=== PATIENT | female | born 1990 | race African-American/Black ===

== ENCOUNTER 2021-10-26 21:19 | Emergency (ER) | payer SELFPAY ==
[2021-10-26 21:49] VITALS: BP 125/68; PULSE 73; RESP 16; TEMP 36.8; O2SAT 100
--- NOTE | 2021-10-26 23:20 | ED.SKABFB ---
HPI - Skin/Abscess/Foreign Bdy General Chief complaint: Skin/Abscess/Foreign Body Stated complaint: painful rash on neck and abd Time Seen by Provider: 10/26/21 22:56 Source: patient Mode of arrival: ambulatory Limitations: no limitations History of Present Illness HPI narrative: Patient presents to the emergency department for an itchy rash noted today. Denies any new soaps, lotions, detergents, or medications. She has not taken anything or applied any cream to the rash. Denies fever. Related Data Allergies Allergy/AdvReac Type Severity Reaction Status Date / Time No Known Allergies Allergy Verified 10/26/21 21:56 Review of Systems Review of Systems: CONSTITUTIONAL: Denies fever SKIN: Reports rash and itching All systems reviewed & are unremarkable except as noted in HPI and below PMFSH Past Medical History Medical History (Updated 10/26/21 @ 23:28 by Jeannie Diaz PA-C) No active medical problems Social History Social History (Updated 10/26/21 @ 23:28 by Jeannie Diaz PA-C) Smoking status: Never smoker Exam Narrative: GENERAL: Well-appearing, well-nourished, and in no acute distress. HEAD: Normocephalic, atraumatic. EYES: EOMI. EXTREMITIES: Normal range of motion. No edema. SKIN: Warm, dry. Scaling, red, papular rash present to the neck and upper chest NEURO: No focal deficits. Alert and oriented x3. PSYCH: Normal mood and affect Course Vital Signs Vital signs: Vital Signs Temperature 98.3 F 10/26/21 21:49 Pulse Rate 73 10/26/21 21:49 Respiratory Rate 16 10/26/21 21:49 Blood Pressure 125/68 10/26/21 21:49 Pulse Oximetry 100 10/26/21 21:49 Temperature 98.3 F 10/26/21 21:49 Pulse Rate 73 10/26/21 21:49 Respiratory Rate 16 10/26/21 21:49 Blood Pressure 125/68 10/26/21 21:49 Pulse Oximetry 100 10/26/21 21:49 MDM - Skin/Abscess/Foreign Bdy MDM Narrative Medical decision making narrative: Patient presents to the emergency department for itchy rash. Appears to be consistent with a possible contact dermatitis. Patient will be given prescription for steroid cream and instructed on use of antihistamines. She is to follow-up with primary care doctor. She was given warnings to return to the ER Critical Care Time Critical Care Time Critical Care Time: No Discharge Plan Discharge Clinical Impression: Rash and nonspecific skin eruption Patient Disposition: Home, Self-Care Condition: Stable Instructions: Dermatitis (ED) Additional Instructions: Return to the emergency department if you experience fever, redness and swelling of your wounds, abnormal drainage from your wounds, or any other symptoms that are concerning to you Take a Pepcid and Claritin daily. Apply steroid ointment as prescribed. Benadryl as needed for severe itching Follow-up with primary care doctor Prescriptions: New triamcinolone acetonide 0.025 % ointment 1 applic topical BID 7 Days Qty: 80 RF: 0 Follow-up/Referrals: PHYSICIAN,INSURANCE SALES PROFESSIONAL [Primary Care Provider] -
== END 2021-10-27 00:02 | disposition home or self-care (01) ==
PROVIDERS: Emergency Provider Emergency Medicine
DX: R21 Rash and other nonspecific skin eruption (principal)
CPT/HCPCS: 99283

== ENCOUNTER 2022-07-05 19:32 | Emergency (ER) | payer MEDICAID, SELFPAY ==
[2022-07-05 20:28] VITALS: BP 125/71; PULSE 76; RESP 16; TEMP 36.8; O2SAT 100
--- NOTE | 2022-07-05 20:35 | ED.FEMALEGU ---
HPI - Female Genitourinary General Chief complaint: Skin/Abscess/Foreign Body Stated complaint: Vaginal Problems Time Seen by Provider: 07/05/22 20:36 Source: patient, RN notes reviewed and old records reviewed Mode of arrival: ambulatory Limitations: no limitations History of Present Illness HPI Narrative: 31-year-old female presents to the [facility] with complaints of right hip in her upper thigh, groin area skin irritation for a couple of weeks. patient states that her primary believes that something that she comes contact with possibly an allergy. Has not taken anything for symptoms. Requesting a work note for 2 days Related Data Allergies Allergy/AdvReac Type Severity Reaction Status Date / Time diphenhydramine Allergy Intermediate Rash Verified 07/05/22 20:41 [From Benadryl] Review of Systems Review of Systems: All systems reviewed & are unremarkable except as noted in HPI and below Constitutional: Constitutional: Reports no additional constitutional complaints Eyes: Eyes: Reports no additional eye complaints ENT: Reports system reviewed and no additional complaints, except as documented Cardiovascular: Cardiovascular: Reports no additional cardiovascular complaints, Denies chest pain and Denies dyspnea Respiratory: Respiratory: Reports no additional respiratory complaints, Denies chest congestion, Denies cough and Denies dyspnea Gastrointestinal: Gastrointestinal: Reports no additional gastrointestinal complaints, Denies abdominal pain, Denies nausea and Denies vomiting Musculoskeletal: Musculoskeletal: Reports no additional musculoskeletal complaints Integumentary/Breasts: Skin/Breast: Reports as per HPI and Reports erythema Neurologic: Reports system reviewed and no additional complaints, except as documented Psychiatric: Psychiatric: Reports no additional psychiatric complaints Allergic/Immunologic: Allergic/Immunologic: Reports no additional allergic/immunologic complaints PMFSH Past Medical History Medical History No active medical problems Social History Social History Smoking status: Never smoker Comments At the time of my signature, I reviewed and agree with the nursing past medical, surgical, social, and family history. There is no relevant family history pertinent to the patient complaint. Exam Const: General: cooperative, healthy appearing, comfortable, no acute distress, well developed, alert, average body habitus and well nourished Nutritional Appearance: average body habitus and well nourished Orientation/consciousness: patient oriented x3 Limitations: no limitations HENMT: Head: normal to inspection Ears: hearing grossly normal bilaterally and external ears normal Face/Nose/Sinus: Normal external nose present, Normal nares present, Normal nasal mucous membranes and turbinates present and normal facial exam Face and sinus: normal facial exam Mouth: Yes Normal oral and palatal mucosa present, Yes lip normal and Yes moist mucous membranes Throat: uvula not midline Eyes: General: appearance normal, both eyes and all related structures Alignment and Position: alignment normal Periorbital: periorbital findings normal Conjunctivae: conjunctivae normal Pupils: Equal, round and reactive pupils present EOM: EOMs intact bilaterally Neck: Neck: normal visual inspection, full ROM, no lymphadenopathy and no meningeal signs Chest: Chest palpation & inspection: normal inspection of the chest Resp: Effort & Inspection: normal respiratory effort and able to speak in complete sentences Auscultation: clear to auscultation bilaterally, no crackles, no rales, no rhonchi and no wheezes Cardio: Rate: regular rate Rhythm: regular rhythm GI: Inspection: normal to inspection GI Palp: No abdominal tenderness Back/Spine/Pelvis: Cervical Spine: cervical ROM normal Thoracic/Lumbar Spine
== END 2022-07-05 20:46 | disposition home or self-care (01) ==
PROVIDERS: Emergency Provider Nurse Practitioner
DX: L25.9 Unspecified contact dermatitis, unspecified cause (principal)
CPT/HCPCS: 99213; G0463